=== PATIENT | male | born 1985 | race Caucasian/White ===

== ENCOUNTER 2017-12-28 23:13 | Emergency (ER) | payer MEDICAID ==
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
[2017-12-28 23:33] VITALS: TEMP 99.5
[2017-12-29 00:30] VITALS: BP 138/81; PULSE 81; RESP 16; O2SAT 95
== END 2017-12-29 00:31 | disposition home or self-care (01) ==
DX: Z04.3 Encounter for examination and observation following other accident (principal); W01.198A Fall on same level from slipping, tripping and stumbling with subsequent striking against other object, initial encounter; Y04.0XXA Assault by unarmed brawl or fight, initial encounter; Y92.238 Other place in hospital as the place of occurrence of the external cause; Y93.89 Activity, other specified